=== PATIENT | female | born 1970 | race Caucasian/White ===

== ENCOUNTER 2024-11-04 13:30 | Emergency (ER) | payer OTHER, SELFPAY ==
--- OUTSIDE RECORDS SUMMARY | 2024-11-02 15:00 | XMS_ITS | Encounter Summary ---
Author Organization [facility] Address [address] [place] [address] Care Team Providers Care Engineer Operations And Maintenance Name Role Phone Camelia Abdi MD Primary Care Provi niyah Reason for Referral * Procedure/Equipment (Routine) - Incomplete Specialty Diagnoses / Procedures Referred By Asia diez Referred To Contact Diagnoses Encounter for screening mammogram for malignant neoplasm of breast Procedures MM Mammogram Screening Bilat W 3D Garrett W CAD Camelia [place]di [place] [address] Phone: tel: fax: Referral ID Status Reason Start Date Expiration Date V isits Requested Visits Authorized [id number] Incomplete 11/02/2024 02/01/2026 1 1 * Procedure/Equipment (Routine) - New Request Specialty Diagnoses / Procedures Referred By Asia diez Referred To Contact Diagnoses Screening for colon cancer Procedures Colonoscopy Screening Camelia [place]di [place] [address] Phone: tel: fax: Referral ID Status Reason Start Date Expiration Date V isits Requested Visits Authorized [id number] New Request 11/02/2024 11/02/2026 1 1 Reason for Visit * Reason Comments Annual Exam Encounter Details Date Type Department Care Team (Latest Contact Info) Description 11/02/2024 3:00 PM CDT Office Visit [facility] [address] [place], [place] [address] [address] Camelia Abdi MD [address] [place] [address] Physical exam (Primary Dx); Screening for malignant neoplasm of cervix; Special screening examination for human papillomavirus (HPV); Screening for colon cancer; Need for hepatitis C screening test; Screening for HIV (human immunodeficiency virus); Encounter for screening mammogram for malignant neoplasm of breast; Encounter for immunization; Family history of thyroid disease Social History Tobacco Use Types Packs/Day Years Used Date Smoking Tobacco: Never Smokeless Tobacco: Never Tobacco Cessation:Counseling Given: Not Answered Alcohol Use Standard Drinks/Week Comments Not Currently 0 (1 standard drink = 0.6 oz pur e alcohol) Comments No Sex and Gender Information Value Date Recorded Sex Assigned at Not on file Legal Sex Female 4:16 AM CDT Gender Identity Not on file Sexual Orientation Not on file Occupation Industry Job Start Date Job End Date Works for [employer] Not on file Not on file No t on file documented as of this encounter Last Filed Vital Signs Vital Sign Reading Time Taken Comments Blood Pressure 124/95 11/02/2024 3:09 PM CDT Pulse 76 11/02/2024 3:09 PM CDT Temperature - - Respiratory Rate - - Oxygen Saturation - - Inhaled Oxygen Concentration - - Weight 64.1 kg (141 lb 4.8 oz) 11/02/2024 2:59 P M CDT Height 164 cm (5' 4.57) 11/02/2024 2:59 PM CDT Body Mass Index 23.83 11/02/2024 2:59 PM CDT documented in this encounter Plan of Treatment Upcoming Encounters Date Type Department Care Team (Late st Contact Info) Description 11/29/2024 4:10 PM CDT Appointment [facility] [address] [facility] [place] [address] Pending Results Name Type Priority Associated Diagnoses Date /Time HPV Genotyping PCR (Cervical/Endocervic al ONLY) with Reflex Cytology (Pap) if Indicated Microbiology Routine Special screening examination for human papillomavirus (HPV) 11/02/2024 4:13 PM CDT Scheduled Orders Name Type Priority Associated Diagnoses Orde r Schedule Colonoscopy Screening GI Routine Screening for colon cancer 1 Occurrences starting 11/02/2024 until 11/02/2026 MM Mammogram Screening Bilat W 3D Garrett W CAD Imaging New Routine Encounter for screening mammogram for malignant neoplasm of breast Expected: 11/02/2024 (Approximate), Expires: 11/02/2025 documented as of this encounter Results * Complete Blood Count-No Diff (11/02/2024 4:08 PM CDT) WBC 5.9 3.5 - 10.5 x10(9)/L 11/02/2024 4:14 PM CDT [facility] RBC 4.25 3.90 - 5.03 x10(12)/L 11/02/2024 4:14 PM CDT [facility] Hemoglobin 12.8 12.0 - 15.5 g/dL 11/02/2024 4:14 PM CDT [facility] HCT 38.8 34.9 - 44.5 % 11/02/2024 4:14 PM CDT [facility] MCV 91.3 80.0 - 100.0 fL 11/02/2024 4:14 PM CDT [facility] MCH 30.1 27.6 - 33.3 pg 11/02/2024 4:14 PM CDT [facility] MCHC 33.0 31.5 - 35.2 g/dL 11/02/2024 4:14 PM CDT [facility] RDW 12.3 11.9 - 15.5 % 11/02/2024 4:14 PM CDT [facility] Platelets 228 150 - 450 x10(9)/L 11/02/2024 4:14 PM CDT [facility] Blood Venipuncture / Unknown 11/02/2024 4:08 PM CDT 11/02/2024 4:08 PM CDT us Camelia Ye MD LAB_1 Fin al Result [facility] CLIA: [id number] [address] [place], [place] [address]za [place] [address], [facility] * TSH with Free T4 (if TSH Abnormal) (11/02/2024 4:08 PM CDT) TSH, Reflex 3.10 0.30 - 4.50 uIU/mL 11/02/2024 9:45 PM CDT [facility] Blood Venipuncture / Unknown 11/02/2024 4:08 PM CDT 11/02/2024 4:08 PM CDT us Camelia Ye MD LAB_1 Fin al Result [facility] CLIA: [id number] [address] * (ABNORMAL) Comprehensive Metabolic Panel (11/02/2024 4:08 PM CDT) Sodium 137 136 - 145 mmol/L 11/03/2024 1:28 PM [facility] Potassium 3.4(L) 3.5 - 5.1 mmol/L 11/03/2024 1:28 PM [facility] Chloride 105 98 - 109 mmol/L 11/03/2024 1:28 PM [facility] CO2 23 20 - 29 mmol/L 11/03/2024 1:28 PM [facility] Anion Gap 9 6 - 16 mmol/L 11/03/2024 1:28 PM [facility] Calcium 14.4(HH) 8.4 - 10.4 mg/dL 11/03/2024 1:28 PM [facility] Comment:Low serum albumin ma y artificially lower total calcium, without impacting ionized calcium concentrations. If patient has or is at risk for hypoalbuminemia, consider ionized serum calcium to more accurately assess calcium status. BUN 13 7 - 26 mg/dL 11/03/2024 1:28 PM [facility] Creatinine 0.78 0.55 - 1.02 mg/dL 11/03/2024 1:28 PM [facility] Alkaline Phosphatase 94 40 - 150 U/L 11/03/2024 1:28 PM [facility] AST (SGOT) 24 16 - 46 U/L 11/03/2024 1:28 PM [facility] ALT (SGPT) <10 0 - 55 U/L 11/03/2024 1:28 PM [facility] Bilirubin, Total 0.2 0.2 - 1.2 mg/dL 11/03/2024 1:28 PM [facility] Protein, Total 6.8 6.4 - 8.3 g/dL 11/03/2024 1:28 PM [facility] Albumin 3.8 3.5 - 5.0 g/dL 11/03/2024 1:28 PM [facility] Glucose 92 70 - 100 mg/dL 11/03/2024 1:28 PM [facility] Comment:The given reference range is for the fasting state. Non-fasting reference range for glucose is 70 - 180 mg/dL. GFR, Estimated >60 >60 mL/min/1. 73m2 11/03/2024 1:28 PM [facility] Hours Fasting 0.0 8 - 12 Hours 11/03/2024 1:28 PM [facility] Blood Venipuncture / Unknown 11/02/2024 4:08 PM CDT 11/02/2024 4:08 PM T us Camelia Ye MD LAB_1 Angel al Result [facility] CLIA: [id number] [address] [place] [address] * Hgb A1C (11/02/2024 4:08 PM T) Hemoglobin A1C 4.6 <=5.6 % 11/03/2024 8:39 AM [facility] Estimated Average Glucose (Calc) 85 < 117 mg/dL 11/03/2024 8:39 AM [facility] Comment:Estimated average gl ucose (eAG) converts A1c into glucose units (mg/dL) and estimates average glucose over the past approximately 3 months. The eAG reference interval (<117 mg/dL) corresponds to an A1c of <5.7%. Blood Venipuncture / Unknown 11/02/2024 4:08 PM CDT 11/02/2024 4:08 PM CDT Camelia Ye MD LAB_1 Fin al Result [facility] CLIA: [id number] [address] * Lipid Panel & Direct LDL (if Needed) (11/02/2024 4:08 PM CDT) Pathologist [facility] Cholesterol 163 0 - 199 mg/dL 11/03/2024 1:28 PM CDT [facility] Triglyceride 139 <=149 mg/dL 11/03/2024 1:28 PM CDT [facility] HDL Cholesterol 52 >=40 mg/dL 1:28 PM T [facility] LDL, Calculated 83 <130 mg/dL 1:28 PM T [facility] Non HDL Chol, Calculated 111 <=159 mg/dL 11/03/2024 1:28 PM T [facility] Cholesterol/HDL Ratio 3.1 <=5.0 11/03/2024 1:28 PM T [facility] Hours Fasting 0.0 8 - 12 Hours 11/03/2024 1:28 PM T [facility] Blood Venipuncture / Unknown 11/02/2024 4:08 PM CDT 11/02/2024 4:08 PM CDT Camelia Ye MD LAB_1 Fin al Result [facility] CLIA: [id number] [address] [place] [address] * HIV 1/2 Ag/Ab 4th Generation (11/02/2024 4:08 PM CDT) HIV 1/2 Antigen/Antib endy (4th generation) Negative (Non Reactive) Negative (Non Reactive) 11/02/2024 9:35 PM CDT [facility] Comment:HIV-1 p24 Antigen an d HIV-1/HIV-2 Antibody not detected Blood Venipuncture / Unknown 11/02/2024 4:08 PM CDT 11/02/2024 4:08 PM CDT Camelia Ye MD LAB_1 Fin al Result Performing Organization Address City/[facility] Co de Phone Number [facility] CLIA: [id number] [address] [place] [address] * Hepatitis C Antibody, with Reflex (11/02/2024 4:08 PM CDT) Hepatitis C Antibody Negative (Non Reactive) Negative (Non Reactive) 11/02/2024 9:35 PM CDT [facility] Comment:Antibodies to HCV no t detected. Does not exclude the possiblity of exposure to HCV. Blood Venipuncture / Unknown 11/02/2024 4:08 PM CDT 11/02/2024 4:08 PM CDT Camelia Ye MD LAB_1 Fin al Result Performing Organization Address [facility] de Phone Number [facility] CLIA: [id number] [address] [place] [address] documented in this encounter Visit Diagnoses Diagnosis Physical exam- Primary Screening for malignant neoplasm of cervix Screening for malignant neoplasm of the cervix Special screening examination for human papillomavirus (HPV) Screening for colon cancer Special screening for malignant neoplasms, colon Need for hepatitis C screening test Special screening examination for other specified viral diseases Screening for HIV (human immunodeficiency virus) Special screening examination for other specified viral diseases Encounter for screening mammogram for malignant neoplasm of breast Other screening mammogram Encounter for immunization Need for other specified prophylactic vaccination against single bacterial disease Family history of thyroid disease Family history of other endocrine and metabolic diseases documented in this encounter Care Teams Engineer Operations And Maintenance Relationship Specialty Start Date End Date Camelia Abdi MD [address] [place] [address] PCP - General Family Practice 11/02/24 documented as of this encounter
--- OUTSIDE RECORDS SUMMARY | 2024-11-02 16:10 | XMS_ITS | Encounter Summary ---
Author Organization [facility] Address [address] [place] [address] Care Team Providers Care Machine Puller Name Role Phone Camelia Abdi MD Primary Care Provi niyah Encounter Details Date Type Department Care Team (Latest Contact Info) Description 11/02/2024 4:10 PM CDT Lab Visit [facility] [address] [place] [phone] Need for hepatitis C screening test; Screening for HIV (human immunodeficiency virus); Physical exam; Family history of thyroid disease; Hypercalcemia Social History Tobacco Use Types Packs/Day Years Used Date Smoking Tobacco: Never Smokeless Tobacco: Never Alcohol Use Standard Drinks/Week Comments Not Currently 0 (1 standard drink = 0.6 oz pur e alcohol) Comments No Sex and Gender Information Value Date Recorded Sex Assigned at Not on file Legal Sex Female 4:16 AM CDT Gender Identity Not on file Sexual Orientation Not on file Occupation Industry Job Start Date Job End Date Works for [employer] Not on file Not on file No t on file documented as of this encounter Plan of Treatment Upcoming Encounters Date Type Department Care Team (Late st Contact Info) Description 11/29/2024 4:10 PM CDT Appointment [facility] [address] [place] [phone] documented as of this encounter Procedures Procedure Name Priority Date/Time Associated Diagnosis Comments HIV 1/2 AG/AB 4TH GEN Routine 11/02/2024 4:08 PM CDT Screening for HIV (human immunodeficiency virus) LIPID PANEL & DIRECT LDL (IF NEEDED) Routine 11/02/2024 4:08 PM CDT Physical exam INTACT PTH Routine 11/02/2024 4:08 PM CDT Hypercalcemia COMPREHENSIVE METABOLIC PANEL Routine 11/02/2024 4:08 PM CDT Physical exam COMPLETE BLOOD COUNT-NO DIFF Routine 11/02/2024 4:08 PM CDT Physical exam HEPATITIS C ANTIBODY, WITH REFLEX (ANTI-HCV) Routine 11/02/2024 4:08 PM CDT Need for hepatitis C screening test TSH, SENSITIVE (WITH REFLEX) Routine 11/02/2024 4:08 PM CDT Family history of thyroid disease HGB A1C Routine 11/02/2024 4:08 PM CDT Physical exam documented in this encounter Results * (ABNORMAL) Intact PTH (11/02/2024 4:08 PM CDT) Intact PTH 917(H) 10 - 100 pg/mL 11/03/2024 3:50 PM CDT [facility] Blood Venipuncture / Unknown 11/02/2024 4:08 PM CDT 11/02/2024 4:08 PM CDT us Camelia Ye MD LAB_1 Fin al Result [facility] CLIA: [id number] [address] * Complete Blood Count-No Diff (11/02/2024 4:08 PM CDT) WBC 5.9 3.5 - 10.5 x10(9)/L 11/02/2024 4:14 PM CDT [facility] [place] [facility] RBC 4.25 3.90 - 5.03 x10(12)/L 11/02/2024 4:14 PM CDT [facility] Hemoglobin 12.8 12.0 - 15.5 g/dL 11/02/2024 4:14 PM CDT [facility] HCT 38.8 34.9 - 44.5 % 11/02/2024 4:[address] [facility] MCV 91.3 80.0 - 100.0 fL 11/02/2024 4:[address] [facility] MCH 30.1 27.6 - 33.3 pg 11/02/2024 4:[address] [facility] MCHC 33.0 31.5 - 35.2 g/dL 11/02/2024 4:[address] [facility] RDW 12.3 11.9 - 15.5 % 11/02/2024 4:[address] [facility] Platelets 228 150 - 450 x10(9)/L 11/02/2024 4:[address] [facility] Blood Venipuncture / Unknown 11/02/2024 4:08 PM CDT 11/02/2024 4:08 PM CDT us Camelia Ye MD LAB_1 Fin al Result Performing Organization Address City/[facility] Co de Phone Number [facility] CLIA: [id number] [address] [place] [address] * TSH with Free T4 (if TSH Abnormal) (11/02/2024 4:08 PM CDT) [facility] Signature TSH, Reflex 3.10 0.30 - 4.50 uIU/mL 11/02/2024 9:45 PM CDT [facility] Blood Venipuncture / Unknown 11/02/2024 4:08 PM CDT 11/02/2024 4:08 PM CDT Camelia Ye MD LAB_1 Fin al Result [facility] CLIA: [id number] [address] [place] [address], [facility] * (ABNORMAL) Comprehensive Metabolic Panel (11/02/2024 4:08 PM CDT) [facility] Sodium 137 136 - 145 mmol/L 11/03/2024 1:28 PM [facility] Potassium 3.4(L) 3.5 - 5.1 mmol/L 11/03/2024 1:28 PM [facility] Chloride 105 98 - 109 mmol/L 11/03/2024 1:28 PM [facility] CO2 23 20 - 29 mmol/L 11/03/2024 1:28 PM [facility] Anion Gap 9 6 - 16 mmol/L 11/03/2024 1:28 PM [facility] Calcium 14.4(HH) 8.4 - 10.4 mg/dL 11/03/2024 1:28 PM [facility] Comment:Low serum albumin ma y artificially lower total calcium, without impacting ionized calcium concentrations. If patient has or is at risk for hypoalbuminemia, consider ionized serum calcium to more accurately assess calcium status. BUN 13 7 - 26 mg/dL 11/03/2024 1:28 PM [facility] Creatinine 0.78 0.55 - 1.02 mg/dL 11/03/2024 1:28 PM [facility] Alkaline Phosphatase 94 40 - 150 U/L 11/03/2024 1:28 PM [facility] AST (SGOT) 24 16 - 46 U/L 11/03/2024 1:28 PM [facility] ALT (SGPT) <10 0 - 55 U/L 11/03/2024 1:28 PM [facility] Bilirubin, Total 0.2 0.2 - 1.2 mg/dL 11/03/2024 1:28 PM [facility] Protein, Total 6.8 6.4 - 8.3 g/dL 11/03/2024 1:28 PM [facility] Albumin 3.8 3.5 - 5.0 g/dL 11/03/2024 1:28 PM [facility] Glucose 92 70 - 100 mg/dL 11/03/2024 1:28 PM [facility] Comment:The given reference range is for the fasting state. Non-fasting reference range for glucose is 70 - 180 mg/dL. GFR, Estimated >60 >60 mL/min/1. 73m2 11/03/2024 1:28 PM T [facility] Hours Fasting 0.0 8 - 12 Hours 11/03/2024 1:28 PM T [facility] Blood Venipuncture / Unknown 11/02/2024 4:08 PM CDT 11/02/2024 4:08 PM CDT Camelia Ye MD LAB_1 Fin al Result Performing Organization Address City/[facility] Co de Phone Number [facility] CLIA: [id number] [address] [place] [address] * Hgb A1C (11/02/2024 4:08 PM CDT) Hemoglobin A1C 4.6 <=5.6 % 11/03/2024 8:39 AM T [facility] Estimated Average Glucose (Calc) 85 < 117 mg/dL 11/03/2024 8:39 AM T [facility] Comment:Estimated average gl ucose (eAG) converts A1c into glucose units (mg/dL) and estimates average glucose over the past approximately 3 months. The eAG reference interval (<117 mg/dL) corresponds to an A1c of <5.7%. Blood Venipuncture / Unknown 11/02/2024 4:08 PM CDT 11/02/2024 4:08 PM CDT Camelia Ye MD LAB_1 Fin al Result [facility] CLIA: [id number] [id number] [place] [address] * Lipid Panel & Direct LDL (if Needed) (11/02/2024 4:08 PM CDT) Cholesterol 163 0 - 199 mg/dL 11/03/2024 1:28 PM CDT [facility] Triglyceride 139 <=149 mg/dL 11/03/2024 1:28 PM CDT [facility] HDL Cholesterol 52 >=40 mg/dL 09/17/202 5 1:28 PM CDT [facility] LDL, Calculated 83 <130 mg/dL 1:28 PM CDT [facility] Non HDL Chol, Calculated 111 <=159 mg/dL 11/03/2024 1:28 PM CDT [facility] Cholesterol/HDL Ratio 3.1 <=5.0 11/03/2024 1:28 PM CDT [facility] Hours Fasting 0.0 8 - 12 Hours 11/03/2024 1:28 PM CDT [facility] Blood Venipuncture / Unknown 11/02/2024 4:08 PM CDT 11/02/2024 4:08 PM CDT Camelia Ye MD LAB_1 Fin al Result Performing Organization Address City/[facility]/ZIP Co de Phone Number [facility] CLIA: [id number] [address] [place] [address] * HIV 1/2 Ag/Ab 4th Generation (11/02/2024 4:08 PM CDT) Pathologist [facility] HIV 1/2 Antigen/Antib endy (4th generation) Negative (Non Reactive) Negative (Non Reactive) 11/02/2024 9:35 PM CDT [facility] Comment:HIV-1 p24 Antigen an d HIV-1/HIV-2 Antibody not detected Blood Venipuncture / Unknown 11/02/2024 4:08 PM CDT 11/02/2024 4:08 PM CDT us Camelia Ye MD LAB_1 Fin al Result [facility] CLIA: [id number] [address] * Hepatitis C Antibody, with Reflex (11/02/2024 4:08 PM CDT) Hepatitis C Antibody Negative (Non Reactive) Negative (Non Reactive) 11/02/2024 9:35 PM CDT [facility] Comment:Antibodies to HCV no t detected. Does not exclude the possiblity of exposure to HCV. Blood Venipuncture / Unknown 11/02/2024 4:08 PM CDT 11/02/2024 4:08 PM CDT us Camelia Ye MD LAB_1 Fin al Result [facility] CLIA: [id number] [address] documented in this encounter Visit Diagnoses Diagnosis Need for hepatitis C screening test Special screening examination for other specified viral diseases Screening for HIV (human immunodeficiency virus) Special screening examination for other specified viral diseases Physical exam Family history of thyroid disease Family history of other endocrine and metabolic diseases Hypercalcemia documented in this encounter Care Teams Machine Puller Relationship Specialty Start Date End Date Camelia Abdi MD [address] [place] [address] PCP - General Family Practice 11/02/24 documented as of this encounter
[2024-11-04] VITALS (16 sets, daily range): BP systolic 135–150; BP diastolic 92–123; PULSE 67–87; RESP 8–18; TEMP 36.8; O2SAT 98–100; BMI 22.8
--- OUTSIDE RECORDS SUMMARY | 2024-11-04 13:32 | XMS_ITS | Clinical Summary ---
Author Organization [facility] Address [address] [place] [address] Care Team Providers Care Butter Liquefier Name Role Phone None Primary Care Provider Unavailabl e Allergies No known active allergies Medications No known medications Active Problems No known active problems Encounters Date Type Department Care Team Description 10/13/2024 Telephone [facility] [address] [place] [address] Frances Chandler MD Failed Appointment (AV 1ST NO SHOW) from Last 3 Months Social History Tobacco Use Types Packs/Day Years Used Date Smoking Tobacco: Never Smokeless Tobacco: Never Social Connections Answer Date Recorded Frequency of Communication with Friends and Fami ly Not on file 02/17/2021 Financial Resource Strain Answer Date R ecorded Difficulty of Paying Living Expenses Not on file 02/17/2021 Difficulty of Paying Living Expenses Not on file 02/17/2021 Comments Unknown Sex and Gender Information Value Date Recorded Sex Assigned at Not on file Legal Sex Female 6:45 AM SCOOP DRIVER Gender Identity Not on file Sexual Orientation Not on file Obstetrics History Last Filed Vital Signs Vital Sign Reading Time Taken Comments Blood Pressure 126/90 04/20/2019 2:08 PM SCOOP DRIVER Pulse 90 04/20/2019 2:08 PM SCOOP DRIVER Temperature 37.3 C (99.1 F) 04/20/2019 2:08 PM SCOOP DRIVER Respiratory Rate 16 12/23/2008 12:1 5 PM SCOOP DRIVER Oxygen Saturation 98% 04/20/2019 2:08 PM SCOOP DRIVER Inhaled Oxygen Concentration - - Weight 112.4 kg (247 lb 12.8 oz) 04/20/2019 2:08 PM SCOOP DRIVER Height 165.1 cm (5' 5) 04/20/2019 2:08 PM SCOOP DRIVER Body Mass Index 41.24 04/20/2019 2:08 PM SCOOP DRIVER Plan of Treatment Health Maintenance Due Date Last Done Comments Tetanus booster 1981 Depression screening for age 12+ 1982 HIV for age 15-65 1985 Hepatitis C screening for age 18-79 1988 Hepatitis B series for 19+ ( 1 of 3 - 19+ 3-dose series) 1989 Pap test for age 21-65 07/17/1991 Colonoscopy through age 75 07/17/2015 Lipids for age 45-75 07/17/2015 Mammogram for age 45-75 07/17/2015 BMI (ht and wt on same day) for age 18+ 04/19/2020 0 04/20/2019 Pneumococcal series for age 50+ (1 of 1 - PCV) 2020 Zoster (shingles) series for age 50+ (1 of 2) 2020 COVID-19 vaccine series (3 - 2024- season) 2024 05/19/2020, 04/28/2020 Influenza Vaccine (#1) 2024 RSV vaccine for adults or pr egnancy (1 - 1-dose 75+ series) 2045 Advance Directives * Full Code (Latest Code Status on File) Date Activated Date Inactivated Comments 12/23/2008 9:30 AM 12/23/2008 2:48 PM Care Teams Butter Liquefier Relationship Specialty Start Date End Date None . PCP - General 12/21/08
--- OUTSIDE RECORDS SUMMARY | 2024-11-04 13:32 | XMS_ITS | Encounter Summary ---
Author Organization [facility] Address [address] [place] [address] Care Team Providers Care Classroom Aide Name Role Phone Camelia Abdi MD Primary Care [facility] Encounter Details Date Type Department Care Team (Late st Contact Info) Description 11/03/2024 Results Follow-Up [facility] Primary Care [facility] [place], [place] [phone] Aleshia Dawkins PA-C [address] [place] [phone] Social History Tobacco Use Types Packs/Day Years [...] Start Date Job End Date Works for [employer] Not on file Not on file No t on file documented as of this encounter Nursing Notes * Linus Giraldo EMT - 11/03/2024 3:32 PM CDT Pt had already been contacted by RN and covering provider. I doubled checked with provider who stated that this encounter can be closed and additional call to pt is not needed at this time. documented in this encounter Plan of Treatment Upcoming Encounters Date Type Department Care Team (Late st Contact Info) Description 11/29/2024 4:10 PM CDT Appointment [facility] [address] [place] [address] documented as of this encounter Visit Diagnoses Not on filedocumented in this encounter Care Teams Classroom Aide Relationship Specialty Start Date End Date Camelia Abdi MD [address] [place] [address] PCP - General Family Practice 11/02/24 documented as of this encounter
--- OUTSIDE RECORDS SUMMARY | 2024-11-04 13:32 | XMS_ITS | Encounter Summary ---
Author Organization [facility] Address [address] [place] [address] Care Team Providers Care It Programmer Name Role Phone Camelia Abdi MD Primary Care Provi niyah Reason for Visit * Reason Comments Critical Lab Result Encounter Details Date Type Department Care Team (Late st Contact Info) Description 11/03/2024 Telephone [facility] [id number] [place] [address] Camelia Abdi MD [address] [place] [address] Critical Lab Result Social History Tobacco Use Types Packs/Day Years [...] Start Date Job End Date Works for [employer] Not on file Not on file No t on file documented as of this encounter Nursing Notes * Aleshia Dawkins PA-C - 11/03/2024 3:12 PM CDT Contacted patient. Explained the concerns of elevated calcium levels. Advised going in to the ER immediately. She will likely decline. She plans to talk with her family and maybe go in tomorrow. She understands the risks associated with that. Elen Dawkins PA-C Virtualist Team * Nayana Ha RN - 11/03/2024 2:45 PM CDT Spoke with pt who was advised that should be seen in ED now due to her critical lab for her calcium. Pt refused to go until she could talk more with a provider to better understand the result and what would be the cause for this. Will route this message back to covering provider to review and address. * Aleshia Dawkins PA-C - 11/03/2024 2:35 PM CDT I received a critical lab value of a calcium level of 14.4. Please call the patient and have her gointo the ER immediately. A calcium level this high can cause neurologic complications, kidney complications, and heart arrhythmias. Thank you! Elen Dawkins PA-C Virtualist Team * Elisha Rosa RN - 11/03/2024 1:33 PM CDT CRITICAL LAB clinical laboratory technologist calling report: Nova Critical lab result: Calcium 14.4 Ordering clinician: Dr Tova Ye documented in this encounter Plan of Treatment Upcoming Encounters Date Type Department Care Team (Late st Contact Info) Description 11/29/2024 4:10 PM CDT Appointment [facility] [address] [place] [address] documented as of this encounter Results * (ABNORMAL) Intact PTH (11/02/2024 4:08 PM CDT) Intact PTH 917(H) 10 - 100 pg/mL 11/03/2024 3:50 PM CDT [facility] Blood Venipuncture / Unknown 11/02/2024 4:08 PM CDT 11/02/2024 4:08 PM CDT Camelia Ye MD LAB_1 Fin al Result [facility] CLIA: [id number] [address] [place], [place] [phone] [place] [address] documented in this encounter Visit Diagnoses Diagnosis Hypercalcemia- Primary documented in this encounter Care Teams It Programmer Relationship Specialty Start Date End Date Camelia Abdi MD [address] [place] [address] PCP - General Family Practice 11/02/24 documented as of this encounter
--- OUTSIDE RECORDS SUMMARY | 2024-11-04 13:32 | XMS_ITS | Clinical Summary ---
Author Organization [facility] Address [address] [place] [address] Care Team Providers Care Nephrology Nurse Name Role Phone Camelia Abdi MD Primary Care Provi niyah Source Comments You are receiving this document as you are listed as the primary care provider,follow-up provider, or the patient has been referred to you for consultation.This is in compliance with the Medicare andMedicaid EHR Incentive Program,which states Providers who transition their patient to another setting of careor provider of care or refers their patient to another provider of care shouldprovide summary care record for each transition of care or referral. [facility] Allergies No known active allergies Medications multivitamin with minerals tablet Take 1 Tablet by mouth daily. Active Active Problems No known active problems Encounters Date Type Department Care Team Description 11/03/2024 Results Follow-Up [facility] [address] [place] [address]. [place] [address] Aleshia Dawkins PA-C 11/03/2024 Telephone [facility] [address] [place], [place] [phone] Camelia Abdi MD Critical Lab Result 11/02/2024 4:10 PM CDT Lab Visit [facility] [address] [place] [phone] Need for hepatitis C screening test; Screening for HIV (human immunodeficiency virus); Physical exam; Family history of thyroid disease; Hypercalcemia 11/02/2024 3:00 PM CDT Office Visit [facility] [address] [place] [phone] Camelia Abdi MD Physical exam (Primary Dx); Screening for malignant neoplasm of cervix; Special screening examination for human papillomavirus (HPV); Screening for colon cancer; Need for hepatitis C screening test; Screening for HIV (human immunodeficiency virus); Encounter for screening mammogram for malignant neoplasm of breast; Encounter for immunization; Family history of thyroid disease from Last 3 Months Immunizations Immunization Administration Dates Next Due PCV20 ([id number]) 11/02/2024 Pfizer Monovalent 12+ Purple Top 05/19/2020,04/17 Tdap 11/02/2024 Zoster RZV (Shingrix) 11/02/2024 Family History Medical History Relation Name Comments Thyroid Disorder Daughter Thyroid Disorder Sister Relation Name Status Comments Daughter Alive Sister Social History Tobacco Use Types Packs/Day Years [...] Start Date Job End Date Works for [employer] Not on file Not on file No t on file Last Filed Vital Signs Vital Sign Reading [...] Mass Index 23.83 11/02/2024 2:59 PM CDT Plan of Treatment Upcoming Encounters Date Type Department Care Team (Late st Contact Info) Description 11/29/2024 4:10 PM CDT Appointment [facility] [address] [place] [address] Health Maintenance Due Date Last Done Comments Colon Cancer Screening Plan Due 1970 Mammogram 1970 HepB Vaccine (1) 1989 Cervical Cancer Screening Due 02/22/1998 02/21/1998 COVID-19 Vaccine (3 2024-2 6 season) 2024 05/19/2020, 04/28/2020 Influenza Vaccine (#1) 2024 Zoster/Shingles Vaccine (2 o f 2) 12/28/2024 11/02/2024 Adult Preventive Visit 11/02/2025 11/02/2024 Cholesterol 11/02/2029 11/02/2024 DTaP/Tdap/Td Vaccine (2 - Tdap) 11/02/2034 11/02/2024 HIV Screening (Preventive Services) Completed 11/02/2024 Hep C Screening (Preventive Services) Completed 11/02/2024 Pneumococcal Vaccine 50+ Yrs Completed 11/02/2024 HepA Vaccine Aged Out No longer eligi ble based on patient's age to complete this topic Hib Vaccine Aged Out No longer eligi ble based on patient's age to complete this topic IPV (Polio) Vaccine Aged Out No longe r eligible based on patient's age to complete this topic MCV4 Vaccine Aged Out No longer eligi ble based on patient's age to complete this topic Meningococcal B Vaccine Aged Out No l onger eligible based on patient's age to complete this topic Procedures Procedure Name Priority Date/Time Associated Diagnosis Comments HIV 1/2 AG/AB 4TH GEN Routine 11/02/2024 4:08 PM CDT Screening for HIV (human immunodeficiency virus) HEPATITIS C ANTIBODY, WITH REFLEX (ANTI-HCV) Routine 11/02/2024 4:08 PM CDT Need for hepatitis C screening test INTACT PTH Routine 11/02/2024 4:08 PM CDT Hypercalcemia COMPLETE BLOOD COUNT-NO DIFF Routine 11/02/2024 4:08 PM CDT Physical exam TSH, SENSITIVE (WITH REFLEX) Routine 11/02/2024 4:08 PM CDT Family history of thyroid disease COMPREHENSIVE METABOLIC PANEL Routine 11/02/2024 4:08 PM CDT Physical exam HGB A1C Routine 11/02/2024 4:08 PM CDT Physical exam LIPID PANEL & DIRECT LDL (IF NEEDED) Routine 11/02/2024 4:08 PM CDT Physical exam ANATOMICAL PATH-C Routine 02/21/1998 11: 55 AM PARTNERSHIP MARKETING MANAGER from Last 3 Months or Most Recently Relevant to Health Maintenance Results * HIV 1/2 Ag/Ab 4th Generation (11/02/2024 4:08 PM CDT) Pathologist [facility] HIV 1/2 Antigen/Antib endy (4th generation) Negative (Non Reactive) Negative (Non Reactive) 11/02/2024 9:35 PM CDT [facility] Comment:HIV-1 p24 Antigen an d HIV-1/HIV-2 Antibody not detected Blood Venipuncture / Unknown 11/02/2024 4:08 PM CDT 11/02/2024 4:08 PM CDT us Camelia Ye MD LAB_1 Fin al Result [facility] CLIA: [id number] [address] * Lipid Panel & Direct LDL (if Needed) (11/02/2024 4:08 PM CDT) [facility] Cholesterol 163 0 - 199 mg/dL 11/03/2024 1:28 PM [facility] Triglyceride 139 <=149 mg/dL 11/03/2024 1:28 PM [facility] HDL Cholesterol 52 >=40 mg/dL 1:28 PM [facility] LDL, Calculated 83 <130 mg/dL 1:28 PM [facility] Non HDL Chol, Calculated 111 <=159 mg/dL 11/03/2024 1:28 PM [facility] Cholesterol/HDL Ratio 3.1 <=5.0 11/03/2024 1:28 PM [facility] Hours Fasting 0.0 8 - 12 Hours 11/03/2024 1:28 PM [facility] Blood Venipuncture / Unknown 11/02/2024 4:08 PM CDT 11/02/2024 4:08 PM CDT Camelia Ye MD LAB_1 Fin al Result [facility] CLIA: [id number] [address] [place] [address] [[email or web address]] * (ABNORMAL) Intact PTH (11/02/2024 4:08 PM CDT) Pathologist [facility] Intact PTH 917(H) 10 - 100 pg/mL 11/03/2024 3:50 PM CDT [facility] Blood Venipuncture / Unknown 11/02/2024 4:08 PM CDT 11/02/2024 4:08 PM CDT Camelia Ye MD LAB_1 Fin al Result Performing Organization Address City/[facility]/ZIP Co de Phone Number [facility] CLIA: [id number] [address] * (ABNORMAL) Comprehensive Metabolic Panel (11/02/2024 4:08 PM CDT) [facility] Sodium 137 136 - 145 mmol/L 11/03/2024 1:28 PM T [facility] Potassium 3.4(L) 3.5 - 5.1 mmol/L 11/03/2024 1:28 PM T [facility] Chloride 105 98 - 109 mmol/L 11/03/2024 1:28 PM T [facility] CO2 23 20 - 29 mmol/L 11/03/2024 1:28 PM T [facility] Anion Gap 9 6 - 16 mmol/L 11/03/2024 1:28 PM T [facility] Calcium 14.4(HH) 8.4 - 10.4 mg/dL 11/03/2024 1:28 PM T [facility] Comment:Low serum albumin ma y artificially lower total calcium, without impacting ionized calcium concentrations. If patient has or is at risk for hypoalbuminemia, consider ionized serum calcium to more accurately assess calcium status. BUN 13 7 - 26 mg/dL 11/03/2024 1:28 PM [facility] Creatinine 0.78 0.55 - 1.02 mg/dL 11/03/2024 1:28 PM [facility] Alkaline Phosphatase 94 40 - 150 U/L 11/03/2024 1:28 PM [facility] AST (SGOT) 24 16 - 46 U/L 11/03/2024 1:28 PM [facility] ALT (SGPT) <10 0 - 55 U/L 11/03/2024 1:28 PM [facility] Bilirubin, Total 0.2 0.2 - 1.2 mg/dL 11/03/2024 1:28 PM [facility] Protein, Total 6.8 6.4 - 8.3 g/dL 11/03/2024 1:28 PM [facility] Albumin 3.8 3.5 - 5.0 g/dL 11/03/2024 1:28 PM [facility] Glucose 92 70 - 100 mg/dL 11/03/2024 1:28 PM [facility] Comment:The given reference range is for the fasting state. Non-fasting reference range for glucose is 70 - 180 mg/dL. GFR, Estimated >60 >60 mL/min/1. 73m2 11/03/2024 1:28 PM [facility] Hours Fasting 0.0 8 - 12 Hours 11/03/2024 1:28 PM [facility] Blood Venipuncture / Unknown 11/02/2024 4:08 PM CDT 11/02/2024 4:08 PM CDT us Camelia Ye MD LAB_1 Fin al Result [facility] CLIA: [id number] [address] [place] [address] [[email or web address]] * Complete Blood Count-No Diff (11/02/2024 4:08 PM CDT) WBC 5.9 3.5 - 10.5 x10(9)/L 11/02/2024 4:14 PM CDT [facility] [place] [facility] RBC 4.25 3.90 - 5.03 x10(12)/L 11/02/2024 4:14 PM CDT [facility] Hemoglobin 12.8 12.0 - 15.5 g/dL 11/02/2024 4:14 PM CDT [facility] HCT 38.8 34.9 - 44.5 % 11/02/2024 4:14 PM CDT [facility] MCV 91.3 80.0 - 100.0 fL 11/02/2024 4:14 PM CDT [facility] MCH 30.1 27.6 - 33.3 pg 11/02/2024 4:14 PM CDT [facility] MCHC 33.0 31.5 - 35.2 g/dL 11/02/2024 4:14 PM CDT [facility] RDW 12.3 11.9 - 15.5 % 11/02/2024 4:14 PM CDT [facility] Platelets 228 150 - 450 x10(9)/L 11/02/2024 4:14 PM CDT [facility] Blood Venipuncture / Unknown 11/02/2024 4:08 PM CDT 11/02/2024 4:08 PM CDT us Camelia Ye MD LAB_1 Fin al Result [facility] CLIA: [id number] [address] [place] [phone] [[email or web address] * Hepatitis C Antibody, with Reflex (11/02/2024 4:08 PM CDT) Pathologist [facility] Hepatitis C Antibody Negative (Non Reactive) Negative (Non Reactive) 11/02/2024 9:35 PM CDT [facility] Comment:Antibodies to HCV no t detected. Does not exclude the possiblity of exposure to HCV. Blood Venipuncture / Unknown 11/02/2024 4:08 PM CDT 11/02/2024 4:08 PM CDT us Camelia Ye MD LAB_1 Fin al Result Performing Organization Address City/[facility] Co de Phone Number [facility] CLIA: [id number] [address] * TSH with Free T4 (if TSH Abnormal) (11/02/2024 4:08 PM CDT) TSH, Reflex 3.10 0.30 - 4.50 uIU/mL 11/02/2024 9:45 PM CDT [facility] Blood Venipuncture / Unknown 11/02/2024 4:08 PM CDT 11/02/2024 4:08 PM CDT us Camelia Ye MD LAB_1 Fin al Result Performing Organization Address [facility] Phone Number [facility] CLIA: [id number] [facility] [address] * Hgb A1C (11/02/2024 4:08 PM CDT) Pathologist [facility] Hemoglobin A1C 4.6 <=5.6 % 11/03/2024 8:39 AM CDT [facility] Estimated Average Glucose (Calc) 85 < 117 mg/dL 11/03/2024 8:39 AM T [facility] Comment:Estimated average gl ucose (eAG) converts A1c into glucose units (mg/dL) and estimates average glucose over the past approximately 3 months. The eAG reference interval (<117 mg/dL) corresponds to an A1c of <5.7%. Blood Venipuncture / Unknown 11/02/2024 4:08 PM CDT 11/02/2024 4:08 PM CDT us Camelia Ye MD LAB_1 Fin al Result Performing Organization Address City/[facility]/ZIP Co de Phone Number [facility] CLIA: [id number] [address] [place], [place] [address], [place] [address] [[email or web address] * Anatomical Path-C (02/21/1998 11:55 AM PARTNERSHIP MARKETING MANAGER) PAP Smear SEE TEXT No normal range HP CONVERSION Comment: Patient: ABBATUNDE MCKEON CERVICAL CYTOLOGY REPORT Pathology # [id number] Date Obtained: Date Received: LMP: CLINICAL HIST CERVICAL SMEAR SPECIMEN ADEQUACY: Satisfactory. ENDOCERVICAL CELLS: Present. CYTOLOGIC IMPRESSION: Within Normal Limits (Negative). Verified 03/02/98 by: ARC (electronic signature) 02/21/1998 11:5 5 AM PARTNERSHIP MARKETING MANAGER Ahsan Frausto MD LAB_1 Final Result HP CONVERSION from Last 3 Months or Most Recently Relevant to Health Maintenance Insurance [facility] Care Teams Nephrology Nurse Relationship Specialty Start Date End Date Camelia Abdi MD [address] [place], [place] [phone] PCP - General Family Practice 9/16/25
[2024-11-04 14:06] LABS: Ionized Calcium* 1.82 mmol/L (1.11-1.30)
[2024-11-04 14:09] LABS: Hematocrit* 37.6 % (33.0-51.0); Hemoglobin* 12.6 gm/dL (12.0-16.0); Immature Granulocytes Abs Auto 0.00 K/uL (0.00-0.30); Immature Granulocytes Pct Auto 0.0 %; Mean Corpuscular HGB Conc 34 gm/dL (32-36); Mean Corpuscular Hemoglobin 30 pg (26-34); Mean Corpuscular Volume 91 fL (80-100); RDW Coefficient of Variation % 12.1 % (11.5-15.5); Red Blood Count* 4.15 m/uL (4.00-5.20); White Blood Count* 4.86 K/uL (4.50-11.00)
[2024-11-04 14:18] LABS: Lymphocytes Absolute Auto 0.80 K/uL (0.90-2.90); Slide Review Reflex No
[2024-11-04 14:23] LABS: Albumin* 3.9 g/dL (3.3-5.0); Chloride* 106 mmol/L (96-114); Sodium* 137 mmol/L (135-149)
[2024-11-04 14:24] LABS: Potassium* 3.0 mmol/L (3.6-5.1)
[2024-11-04 14:26] LABS: Alanine Aminotransferase* 11 U/L (4-35); Alkaline Phosphatase* 96 U/L (40-150); Anion Gap 4 mEq/L (7-15); Aspartate Amino Transferase* 17 U/L (12-35); Bilirubin Total* 0.4 mg/dL (0.1-1.5); Blood Urea Nitrogen* 15 mg/dL (7-30); Carbon Dioxide* 27 mmol/L (20-32); Creatinine* 0.9 mg/dL (0.5-1.5); Est. Creatinine Clearance* 64.30; Estimated Glomerular Filt Rate 76 ml/min; Glucose* 95 mg/dL (60-115); Total Protein* 6.9 g/dL (6.0-8.3)
[2024-11-04 14:29] LABS: Calcium* 13.8 mg/dL (8.4-10.6)
[2024-11-04 14:54] LABS: PTH Intact* 544.8 pg/mL (14.2-75.2)
[2024-11-04] MEDS: POTASSIUM BICARB 25 MEQ EFFERVESCENT TAB 50 MEQ PO (14:59)
--- NOTE | 2024-11-04 15:28 | ED.GENADULT ---
HPI - General Adult General Date Seen: 11/04/24 Chief complaint: Unspecified Complaint, Adult Stated complaint: High calcium Time Seen by Provider: 11/04/24 14:39 Source: patient Mode of arrival: ambulatory Limitations: no limitations History of Present Illness HPI narrative: Patient is a 54-year-old female presenting to the emergency department for abnormal lab work. Patient states she has not seen her primary care provider for while but did finally have a follow-up after several years a couple days ago. She states she has been asymptomatic and was just a checkup. She was called today and told she had a high calcium level and needed to be evaluated. She was told it was 14. She denies any history of smoking. Denies chest pain, shortness of breath, lightheadedness, dizziness, weakness, numbness, vision changes, headache, abdominal pains, confusion, weakness, numbness. States she feels completely asymptomatic. Does not currently take any medications. Related Data Home Medications ?Medication ?Instructions ?Recorded ?Confirmed No Known Home Medications 11/04/24 11/04/24 Allergies Allergy/AdvReac Type Severity Reaction Status Date / Time No Known Drug Allergies Allergy Verified 12/02/22 17:21 Review of Systems Status of ROS: Reports: 10 or more systems reviewed and unremarkable except as noted in History and below PFSH [facility] Social History Smoking Status: Never smoker How often do you have a drink containing alcohol: never AUDIT-C Alcohol total score: 0 Non-prescribed substance use: denies use Exam Narrative: Exam Narrative: Const: Well-nourished, Well-developed, in no distress Eyes: PERRL, no conjunctival injection, and symmetrical lids HENT: Atraumatic external nose and ears. Moist mucous membranes. Neck: Symmetric, trachea midline, No thyromegaly. CVS: RRR, No murmurs or gallops. Peripheral pulses 2+ and equal in all extremities RESP: Unlabored respiratory effort. Clear to auscultation bilaterally. GI: Nontender/Nondistended, No rebound or guarding. MSK:Extremities w/o deformity, Normal Active ROM Skin: Warm, Dry. No rashes or lesions. Neuro: Normal Muscle tone, No focal neurological deficits. Psych: Awake, Alert, & Oriented x3. Appropriate mood and affect. Const: Vital Signs, click to edit/add: Vital Signs - 24 hr 11/04/24 13:42 11/04/24 14:59 11/04/24 15:00 Temperature 98.3 F Pulse Rate Pulse Rate [Pulse Oximeter] 87 Respiratory Rate 16 17 18 Blood Pressure Blood Pressure [Ri ght Upper Arm] 150/97 H Pulse Oximetry 99 Oxygen Delivery Me thod Room Air 11/04/24 15:15 11/04/24 15:30 11/04/24 15:35 Temperature Pulse Rate Pulse Rate [Pulse Oximeter] Respiratory Rate 16 12 11 L Blood Pressure 135/95 H Blood Pressure [Ri ght Upper Arm] Pulse Oximetry Oxygen Delivery Me thod 11/04/24 15:45 11/04/24 16:00 11/04/24 16:02 Temperature Pulse Rate 67 69 Pulse Rate [Pulse Oximeter] Respiratory Rate 15 15 11 L Blood Pressure 140/93 H Blood Pressure [Ri ght Upper Arm] Pulse Oximetry 99 100 Oxygen Delivery Me thod Course Vital Signs Vital signs: Initial Vital Signs Temperature 98.3 F 11/04/24 13:42 Temperature Source Temporal Artery Scan 11/04/24 13:42 Pulse Rate 87 11/04/24 13:42 Respiratory Rate 16 11/04/24 13:42 Blood Pressure 150/97 H 11/04/24 13:42 Blood Pressure Mean 114 H 11/04/24 13:42 Blood Pressure Position Sitting 11/04/24 13:42 Pulse Oximetry 99 11/04/24 13:42 Oxygen Delivery Method Room Air 11/04/24 13:42 Vital Signs Temperature 98.3 F 11/04/24 13:42 Pulse Rate 87 11/04/24 13:42 Respiratory Rate 16 11/04/24 13:42 Blood Pressure 150/97 H 11/04/24 13:42 Pulse Oximetry 99 11/04/24 13:42 Oxygen Delivery Method Room Air 11/04/24 13:42 Temperature 98.3 F 11/04/24 13:42 Pulse Rate 69 11/04/24 16:02 Respiratory Rate 11 L 11/04/24 16:02 Blood Pressure 140/93 H 11/04/24 16:02 Pulse Oximetry 100 11/04/24 16:02 Oxygen Delivery Method Room Air 11/04/24 13:42 Medications Administered Medications: Discontinued Medications Generic Name Dose Route Start Last Admin Trade Name Freq PRN Reason Stop Dose Admin Sodium Chloride 1,000 mls @ 1,000 mls/hr 11/04/24 14:45 11/04/24 16:08 0.9 % Sodium Chloride 1000 Ml IV 11/04/24 15:44 Infused .Q1H LILLY Infusion Potassium Bicarbonate 50 meq 11/04/24 14:51 11/04/24 14:59 Potassium Bicarb 25 Meq Effervescent Tab PO 11/04/24 14:52 50 meq ONCE ONE Administration Medical Decision Making MDM Narrative Medical decision making narrative: Patient is a 54-year-old female presenting to the emergency department for abnormal lab work. Due to the hike calcium seen outpatient lab will order CBC, CMP, TSH, magnesium, ionized calcium, phosphorus, PTH. Lab work returned showing a calcium of 13.8, ionized calcium of 1.82, potassium of 3.0, phosphorus of 2.1. Magnesium is normal 1.9. Her TSH within normal limits. PTH is 544.8. This is consistent with a primary hyper parathyroidism. She is not having any symptoms at this time. A L of normal saline was ordered. Also gave 50 mEq of oral potassium. Since her primary care was with [facility] will trying consult [facility] endocrine to see if they will consult. They were unable to consult as she is not a patient of the endocrine service. Considering her otherwise stable vital signs the fact that she is asymptomatic I do believe she is safe for discharge. She does states she has already spoke to her primary care provider and will follow-up next week. Lab Data Labs: Lab Results 11/04/24 11/04/24 Range/Units 13:50 14:32 WBC 4.86 (4.50-11.00) K/uL RBC 4.15 (4.00-5.20) m/uL Hgb 12.6 (12.0-16.0) gm/dL Hct 37.6 (33.0-51.0) % MCV 91 (80-100) fL MCH 30 (26-34) pg MCHC 34 (32-36) gm/dL RDW Coeff of Adilia 12.1 (11.5-15.5) % Plt Count 190 (140-440) K/uL Neut % (Auto) 74.1 H (42.0-72.0) % Lymph % (Auto) 17.3 L (20-44) % [place] % (Auto) 6.4 (0.0-11.0) % Eos % (Auto) 1.6 (0.0-7.0) % Baso % (Auto) 0.6 (0.0-3.0) % Neut # (Auto) 3.60 (1.7-7.0) K/uL Lymph # (Auto) 0.80 L (0.90-2.90) K/uL [place] # (Auto) 0.30 (0.00-0.90) K/UL Eos # (Auto) 0.08 (0.00-0.50) K/uL Baso # (Auto) 0.03 (0.00-0.30) K/uL Abs Immat Gran (auto) 0.00 (0.00-0.30) K/uL Imm/Tot Granulo (auto) 0.0 % Sodium 137 (135-149) mmol/L Potassium 3.0 L (3.6-5.1) mmol/L Chloride 106 (96-114) mmol/L Carbon Dioxide 27 (20-32) mmol/L Anion Gap 4 L (7-15) mEq/L BUN 15 (7-30) mg/dL Creatinine 0.9 (0.5-1.5) mg/dL Estimated Creat Clear 64.30 Estimated GFR 76 ml/min Glucose 95 (60-115) mg/dL Calcium 13.8 H* (8.4-10.6) mg/dL Ionized Calcium Radha 1.82 H (1.11-1.30) mmol/L Phosphorus 2.1 L (2.5-4.5) mg/dL Magnesium 1.9 (1.5-2.6) mg/dL Total Bilirubin 0.4 (0.1-1.5) mg/dL AST 17 (12-35) U/L ALT 11 (4-35) U/L Alkaline Phosphatase 96 (40-150) U/L Total Protein 6.9 (6.0-8.3) g/dL Albumin 3.9 (3.3-5.0) g/dL TSH 3.170 (0.270-4.20) uIU/mL PTH Intact 544.8 H (14.2-75.2) pg/mL Lab Acknowledgement Test Added ECG Data Attestation: I personally reviewed and interpreted this ECG as follows: Prior ECG tracings: not available for review Interpretation: Normal sinus rhythm with a rate 66 beats per minute, normal intervals, normal axis, no ST or T-wave abnormalities. Discharge Plan Discharge Clinical Impression: Hypercalcemia Patient Disposition: Home, Self-Care Condition: Stable Instructions: Hypercalcemia (ED) Additional Instructions: Have close follow-up with the primary care provider also tried to set follow-up with Endocrine. Return to emergency department for new or worsening symptoms. Prescriptions: No Action No Known Home Medications Follow Up/Referrals: Provider,Not a Local [Primary Care Provider, Family Practice] Stand Alone Forms: TAKO Info Instructions
== END 2024-11-04 17:44 | disposition home or self-care (01) ==
PROVIDERS: Emergency Provider Student in an Organized Health Care Education/Training Program
DX: E83.52 Hypercalcemia (principal)
CPT/HCPCS: 36415; 80048; 80053; 81001; 82330; 83735; 83970; 84100; 84443; 85025; 93005; 96360; 99284; A9270; J7030